=== PATIENT | male | born 1970 | race Caucasian/White ===

== ENCOUNTER 2016-07-24 07:24 | Emergency (ER) | payer OTHER ==
[2016-07-24 07:41] VITALS: BP 115/78
--- NOTE | 2016-07-24 08:00 | UC ---
Skin Complaint HPI - HPI Summary HPI Summary: rash on the scalp x 2 days located on the left posterior scalp , noted after getting a haircut the area is red, itchy , not painful and no discharge - History of Current Complaint Chief Complaint: UCSkin Time Seen by Provider: 07/24/16 07:30 Stated Complaint: SKIN COMPLAINT Hx Obtained From: Patient Onset/Duration: Gradual Onset, Lasting Days - 2, Still Present Timing: Constant Onset Severity: Moderate Current Severity: Moderate Location: Other - scalp Character: Pruritus, Redness, Raised Aggravating: Nothing Alleviating: Nothing Associated Signs & Symptoms: Positive: Negative - Allergy/Home Medications Allergies/Adverse Reactions: Allergies Allergy/AdvReac Type Severity Reaction Status Date / Time Erythromycin Allergy Intermediate Itching Verified 07/24/16 07:36 Sulfa Antibiotics Allergy Intermediate Itching Verified 07/24/16 07:36 Home Medications: Home Medications Calcium Carbonate CHEW TAB* [Tums*] 500 mg PO ONCE PRN 07/24/16 [History Confirmed 07/24/16] Review of Systems Constitutional: Negative Skin: Rash Eyes: Negative ENT: Negative Respiratory: Negative Cardiovascular: Negative All Other Systems Reviewed And Are Negative: Yes PMH/Surg Hx/FS Hx/Imm Hx Previously Healthy: Yes - Surgical History Surgical History: None - Family History Known Family History: Negative: Diabetes - Social History Alcohol Use: Weekly Substance Use Type: None Smoking Status (MU): Never Smoked Tobacco Physical Exam Triage Information Reviewed: Yes Appearance: Well-Appearing, No Pain Distress, Well-Nourished Vital Signs: Initial Vital Signs Temp 97.8 F 07/24/16 07:37 Pulse 64 07/24/16 07:37 Resp 16 07/24/16 07:37 BP 115/78 07/24/16 07:37 Pulse Ox 99 07/24/16 07:37 Vital Signs Reviewed: Yes Eyes: Positive: Conjunctiva Clear ENT Exam: Normal ENT: Positive: Normal ENT inspection, Hearing grossly normal, Pharynx normal Neck: Positive: Supple, Nontender, No Lymphadenopathy Respiratory: Positive: Chest non-tender, Lungs clear, Normal breath sounds Cardiovascular: Positive: RRR, No Murmur, Pulses Normal Skin: Positive: rashes - macularpapulary rash left posterior scalp , not tender , no discharge Course/Dx - Diagnoses Provider Diagnoses: Tinea capitis Discharge - Discharge Plan Condition: Stable Disposition: HOME Prescriptions: Ketoconazole 2 % CREAM (NF) [Nizoral 2% CREAM (NF)] 1 applic TOPICAL BID #60 gm Patient Education Materials: Tinea Capitis (ED) Additional Instructions: will start the treatment with antifungal cream and not a PO medication for now please use the cream 2x per day for 14 days follow up with your pcp in 10 days if not improving
== END 2016-07-24 08:07 | disposition home or self-care (01) ==
LOC: UCCORT 07:24
DX: B35.0 Tinea barbae and tinea capitis (principal); Z88.1 Allergy status to other antibiotic agents; Z88.2 Allergy status to sulfonamides
CPT/HCPCS: 99202; G0463

== ENCOUNTER 2016-08-02 07:20 | Emergency (ER) | payer OTHER ==
[2016-08-02 07:43] VITALS: BP 132/95
--- NOTE | 2016-08-02 08:15 | UC ---
Skin Complaint HPI - History of Current Complaint Chief Complaint: UCSkin Time Seen by Provider: 08/02/16 07:55 Stated Complaint: SKIN CONCERN Hx Obtained From: Patient Onset/Duration: Gradual Onset Skin Exposure Onset/Duration: Weeks Ago Onset Severity: Mild Character: Pruritus Aggravating: Nothing Alleviating: OTC Creams/Salves Associated Signs & Symptoms: Positive: Negative - Allergy/Home Medications Allergies/Adverse Reactions: Allergies Allergy/AdvReac Type Severity Reaction Status Date / Time Erythromycin Allergy Intermediate Itching Verified 08/02/16 07:26 Sulfa Antibiotics Allergy Intermediate Itching Verified 08/02/16 07:26 Home Medications: Home Medications Ibuprofen TAB* [Advil TAB*] 200 mg PO Q6H PRN 08/02/16 [History Confirmed ] Review of Systems Constitutional: Negative Skin: Negative, Other - itching Eyes: Negative ENT: Negative Respiratory: Negative Cardiovascular: Negative Gastrointestinal: Negative Genitourinary: Negative Motor: Negative Neurovascular: Negative Musculoskeletal: Negative Neurological: Negative Psychological: Negative All Other Systems Reviewed And Are Negative: Yes PMH/Surg Hx/FS Hx/Imm Hx Previously Healthy: Yes - Surgical History Surgical History: None - Family History Known Family History: Negative: Diabetes - Social History Occupation: Employed Full-time Alcohol Use: Weekly Substance Use Type: None Smoking Status (MU): Former Smoker Type: Cigarettes When Did the Patient Quit Smoking/Using Tobacco: 15 YEARS AGO Physical Exam Triage Information Reviewed: Yes Appearance: Well-Appearing, No Pain Distress, Well-Nourished Vital Signs: Initial Vital Signs Temp 97.9 F 08/02/16 07:27 Pulse 73 08/02/16 07:27 Resp 18 08/02/16 07:27 BP 132/95 08/02/16 07:27 Pulse Ox 100 08/02/16 07:27 Vital Signs Reviewed: Yes Eye Exam: Normal ENT Exam: Normal Dental Exam: Normal Neck exam: Normal Neck: Positive: 1 Respiratory Exam: Normal Cardiovascular Exam: Normal Abdominal Exam: Normal Musculoskeletal Exam: Normal Neurological Exam: Normal Psychological Exam: Normal Skin Exam: Normal Skin: Positive: Other - left posterior scalp with small round red raised area < 2x2 mm with yellow sebum appearance / plugged hair follicle present. no vesicles. no streaking. no discharge. no induration . Course/Dx - Course Course Of Treatment: No cellulitis or shingles present. Appears to be plugged hair follicle at this time. He is worried for shingles but with the prodromal phase going on for at least 1 week and no vesicles that is highly unlikely. He is aware and agreeable to plan and will f/u with PCP when he gets back to [facility] - Differential Diagnoses - Skin Complaint Differential Diagnoses: Poison [place], Varicella Zoster - Diagnoses Provider Diagnoses: seborrheic dermatitis Discharge - Discharge Plan Condition: Good Disposition: HOME Prescriptions: Ketoconazole (Topical) [Ketoconazole] 2 % EX SEE INSTRUCTIONS #1 bottle Patient Education Materials: Tinea Capitis (ED) Referrals: Non Staff,Doctor [Primary Care Provider] - 1 Week Additional Instructions: At this time we will advise twice weekly shampoo to reduce your symptoms from worsening. You do not appear to be shingles at this time. If your symptoms worsen please seek medical attention. Of note your blood pressure was elevated please follow up with your PCP in the 2-4 weeks
== END 2016-08-02 08:25 | disposition home or self-care (01) ==
LOC: UCCORT 07:20
DX: L21.9 Seborrheic dermatitis, unspecified (principal); Z88.1 Allergy status to other antibiotic agents; Z88.2 Allergy status to sulfonamides; Z87.891 Personal history of nicotine dependence
CPT/HCPCS: 99212; G0463

== ENCOUNTER 2017-09-08 07:42 | Emergency (ER) | payer OTHER ==
[2017-09-08 07:55] VITALS: BP 126/78
--- NOTE | 2017-09-08 08:19 | UC ---
Complaint Male HPI - HPI Summary HPI Summary: burning urination x 1 day no fever, no chills, no frequency , no flank pain - History of Current Complaint Chief Complaint: UCGU Stated Complaint: URINARY Time Seen by Provider: 09/08/17 07:58 Hx Obtained From: Patient Onset/Duration: Gradual Onset, Lasting Days - 1, Still Present Timing: Constant Severity Initially: Moderate Severity Currently: Moderate Pain Intensity: 0 Location: None Character: Sharp, Burning Aggravating Factor(s): Voiding Alleviating Factor(s): Nothing Associated Signs And Symptoms: Positive: Dysuria. Negative: Diaphoresis, Back Pain, Fever, Hematuria, Constipation, Blood in Stool, Rectal Pain, Appetite, Nausea, Vomiting(# Of Episodes =) - Allergies/Home Medications Allergies/Adverse Reactions: Allergies Allergy/AdvReac Type Severity Reaction Status Date / Time erythromycin base Allergy Itching Verified 09/08/17 07:50 Sulfa (Sulfonamide Allergy Itching Verified 09/08/17 07:50 Antibiotics) Home Medications: Home Medications Ascorbic Acid/Multivit-Min [Emergen-C Vitamin C] 1 savi PO ONCE 09/08/17 [ History Confirmed 09/08/17] Multivitamin [Multivitamins] 1 cap PO DAILY 09/08/17 [History Confirmed 09/08/17 ] PMH/Surg Hx/FS Hx/Imm Hx Previously Healthy: Yes - Surgical History Surgical History: None - Family History Known Family History: Negative: Diabetes - Social History Alcohol Use: Occasionally Substance Use Type: None Smoking Status (MU): Former Smoker Type: Cigarettes When Did the Patient Quit Smoking/Using Tobacco: 13 years ago Review of Systems Constitutional: Negative Skin: Negative Eyes: Negative ENT: Negative Respiratory: Negative Genitourinary: Dysuria Is Patient Immunocompromised?: No All Other Systems Reviewed And Are Negative: Yes Physical Exam Triage Information Reviewed: Yes Appearance: Well-Appearing, No Pain Distress, Well-Nourished Vital Signs: Initial Vital Signs Temp 98.2 F 09/08/17 07:51 Pulse 59 09/08/17 07:51 Resp 17 09/08/17 07:51 BP 126/78 09/08/17 07:51 Pulse Ox 100 09/08/17 07:51 Eye Exam: Normal Eyes: Positive: Conjunctiva Clear ENT: Positive: Normal ENT inspection, Hearing grossly normal, Pharynx normal Neck exam: Normal Neck: Positive: Supple Respiratory: Positive: Chest non-tender, Lungs clear, Normal breath sounds Cardiovascular: Positive: RRR, No Murmur, Pulses Normal Abdomen Description: Positive: Nontender, No Organomegaly, Soft. Negative: CVA Tenderness (R), Distended, Guarding Bowel Sounds: Positive: Present Complaint Male Course/Dx - Differential Dx/Diagnosis Provider Diagnoses: dysuria Discharge - Sign-Out/Discharge Documenting (check all that apply): Discharge/Admit/Transfer - Discharge Plan Condition: Stable Disposition: HOME Prescriptions: Ciprofloxacin TAB* [Cipro 500 MG TAB*] 500 mg PO BID #14 tab Patient Education Materials: Dysuria (ED) Referrals: Non Staff,Doctor [Primary Care Provider] - If Needed - Billing Disposition and Condition Condition: STABLE Disposition: Home
== END 2017-09-08 08:21 | disposition home or self-care (01) ==
LOC: UCCORT 07:42
DX: R30.0 Dysuria (principal); Z88.2 Allergy status to sulfonamides; Z88.1 Allergy status to other antibiotic agents; Z87.891 Personal history of nicotine dependence
CPT/HCPCS: 81003; 87086; 99212; G0463